=== PATIENT | male | born 1945 | race Caucasian/White ===

== ENCOUNTER 2018-02-07 08:15 | Inpatient (IN) ==
[2018-02-07] MEDS ORDERED: Naloxone 0.4 MG/ML INJ IVP PRN (10:27)
[2018-02-07] MEDS ORDERED: Ondansetron 4 MG/2 ML VIAL IVP PRN (10:27)
--- NOTE | 2018-02-07 10:45 | Internal Med History&Physical ---
Date of Encounter: 02/07/18 Time of Encounter: 10:30 Internal Medicine - H&P: HPI Chief complaint: abdominal pain Admitted From: Hospital to Hospital Transfer Plans for Post Hospital Care: Home History of present illness: Mr. Thorne is a 72 year old male with history of HTN, HLD who presented to his local ED early this morning because of severe abdominal pain, nausea and vomiting which began yesterday evening around 2200. He states that the pain is severe, radiates to his back, and is associated with vomiting. He had some diarrhea yesterday. He denies red or black stool or vomit. At the outside ED he initially appeared extremely ill and had a CTA to eval for aortic dissection/AAA rupture, and it showed normal aorta with evidence of SBO with transition point in the right lower quadrant. He was given IV dilaudid and an NG was placed with improvement of his symptoms and he requested to transfer to [facility] for further care. He states that his is normally quite healthy, follows with his PCP yearly, and has never had SBO in the past. He did have an abdominal surgery for bleeding ulcer approximately 20 years ago. Past Med Surg Social Fam HX - Past Medical History Medical history: hyperlipidemia, hypertension - Past Surgical History Surgical History: other Additional surgical history: Surgery for bleeding ulcers ~ 20 years ago - Social History Smoking Status: Former smoker Smokeless Tobacco Status: No Alcohol use: none Drug use: none - Family History Father Hx Family Cardiac Disorders: Yes (Father with MT in his 50s) Internal Medicine - H&P: Meds Losartan [Cozaar] 25 mg PO DAILY 02/07/18 [History] Simvastatin [Zocor] 20 mg PO HS 02/07/18 [History] Allergy/AdvReac Type Severity Reaction Status Date / Time No Known Allergies Allergy Verified 02/07/18 10:34 All Systems PM: A 10-system review of systems was performed and is negative for pertinent findings except as documented above in the HPI. - Constitutional Constitutional: no fever(s), no weakness, no weight loss - EENT Eyes: no blurry vision Nose, mouth and throat: dry mouth - Cardiovascular Cardiovascular ROS IM: no chest pain - Respiratory Respiratory: no cough - Gastrointestinal Gastrointestinal: belching, bloating, diarrhea, vomiting - Genitourinary Genitourinary ROS male: no dysuria - Musculoskeletal Musculoskeletal ROS IM: no muscle cramps - Integumentary Integumentary IM: no rash - Neurological Neurological ROS: no confusion - Psychiatric Psychiatric: no confusion, no depression - Endocrine Endocrine IM: no fatigue - Hematologic/Lymphatic Hematologic/Lymphatic: no easy bleeding - Allergic/Immunologic Allergic/Immunologic: as per HPI - Constitutional Vitals: Temp Pulse Resp BP Pulse Ox 97.8 F 68 18 149/89 96 02/07/18 10:09 02/07/18 10:09 02/07/18 10:09 02/07/18 10:09 02/07/18 10:09 General appearance: Present: A&O X 3, no acute distress Exam: Patient resting comfortably in bed with no acute distress - Head Head exam: Present: atraumatic - Eye Eye exam: Present: EOMI, sclera anicteric Pupils: Present: PERRL - ENT ENT exam: Present: mucous membranes dry - Neck Neck exam general surgery: Present: supple - Respiratory Respiratory exam: Present: CTAB - Cardiovascular Cardiovascular exam: Present: RRR. Absent: diastolic murmur, gallop, rubs, systolic murmur - GI/Abdominal GI/Abdominal exam: Present: diminished bowel sounds, guarding, soft, tenderness Additional comments: Markedly diminished bowel sounds, high pitch, pain with palpation worst in bilateral lower quadrants - Extremities Exam Extremities exam: Absent: pedal edema - Neurological Exam Neurological exam: Present: no focal deficits - Psychiatric Psychiatric exam: Present: normal affect, normal mood - Skin Skin exam: Absent: rash Internal Med - H&P Results - Labs CBC & Chem 7: 02/07/18 11:22 02/07/18 11:22 Labs: K 4.8, Ca 10 at outside hospital - Assessment and plan (1) Small bowel obstruction Current Visit: Yes Status: Acute Assessment and plan: Patient hemodynamically stable. Denies history of previous SBO. Does have history of abdominal surgery for ulcers ~20 years ago. - General surgery consulted, appreciate assistance - NG in place - will attach to low intermittent suction and monitor output - Check and replace electrolytes as needed - NS at 125 ccs/hr - Will give IV pain meds, but limit as able. Code(s): K56.609 - Unspecified intestinal obstruction, unspecified as to partial versus complete obstruction SNOMED Code(s): 699970094 (2) HTN (hypertension) Current Visit: Yes Status: Acute Assessment and plan: BP stable on arrival to [facility]. Patient unsure of home meds. - Will attempt to obtain medication list from . Currently no need for antihypertensives, if BP increases significantly can consider IV antihypertensive meds PRN (patient NPO). Qualifiers: Hypertension type: essential hypertension Qualified Code(s): I10 - Essential (primary) hypertension (3) HLD (hyperlipidemia) Current Visit: Yes Status: Acute Assessment and plan: Hold meds, patient NPO Qualifiers: Hyperlipidemia type: unspecified Qualified Code(s): E78.5 - Hyperlipidemia, unspecified (4) Lactic acid acidosis Current Visit: Yes Status: Acute Assessment and plan: Lactate 2.6 at outside ED, secondary to dehydration - Recheck lactate - Time Spent With Patient Total time spent is greater than 50% in coordination of care (as documented) at patient's floor/unit and/or counseling patient: 25 - 35 minutes
[2018-02-07] MEDS: 0.9 % Sodium Chloride 1,000 ML IVC SCH ×2 (11:23→19:46)
[2018-02-07] MEDS: *HR* HYDROmorphone (PF) 1 MG/ML SYRINGE IVP PRN ×3 (11:23→21:31)
[2018-02-07 11:36] LABS: Basophils % 0.2 %; Hematocrit 42.3 % (37.5-50.1); Hemoglobin 14.5 g/dL (12.9-16.9); Immature Granulocytes % 0.3 % (0-4); Lymphocytes # 0.6 K/mcL (0.6-4.6); Lymphocytes % 6.1 %; Mean Corpuscular HGB Conc 34.3 g/dL (31.6-35.5); Mean Corpuscular Hemoglobin 31.3 pg (28.0-33.3); Mean Corpuscular Volume 91.2 fL (83.0-100.0); Mean Platelet Volume 9.4 fL (9.4-12.4); Monocytes # 0.6 K/mcL (0.0-1.3); Monocytes % 6.7 %; Platelet Count 211 K/mcL (140-400); Red Blood Count 4.64 M/mcL (4.19-5.50); Red Cell Distribution Width 12.2 % (11.5-14.5); Segmented Neutrophils % 86.7 %
[2018-02-07 11:54] LABS: BUN/Creatinine Ratio 16 (6-26); Blood Urea Nitrogen 16 mg/dL (8-23); Calcium 8.7 mg/dL (8.6-10.3); Carbon Dioxide 28 mEq/L (23-29); Chloride 107 mEq/L (98-107); Glucose 132 mg/dL (70-105); Osmolality,Calculated 293 (280-300); Potassium 4.9 mEq/L (3.5-5.1); Sodium 140 mEq/L (136-145); eGFR For Non-African Americans > 60 (> 60)
--- NOTE | 2018-02-07 15:52 | General Surgery Consult Note ---
Date of Encounter: 02/07/18 Time of Encounter: 12:30 Assessment and Plan (1) Small bowel obstruction Current Visit: Yes Status: Acute CT evidence for small bowel obstruction Patient has NGT with dark brown liquid Patient NPO IVF at 125 ml/hr On hydromorphone for pain Zofran for nausea Protonix for GI prophylaxis Will trend NGT output, if consistent or increases > will order CT abdomen/pelvis with IV and oral contrast tomorrow (2) HTN (hypertension) Current Visit: Yes Status: Acute Management per primary team Qualifiers: Hypertension type: essential hypertension Qualified Code(s): I10 - Essential (primary) hypertension (3) HLD (hyperlipidemia) Current Visit: Yes Status: Acute Management per primary team Qualifiers: Hyperlipidemia type: unspecified Qualified Code(s): E78.5 - Hyperlipidemia, unspecified History of Present Illness Consult date: 02/07/18 Reason for consult: other (small bowel obstruction) Requesting physician: Kelly Mendosa History of present illness: 72 year old male with PMHx of HTN and HLD who presented to [place] after being seen at his local ED this morning for abdominal pain, nausea and vomiting. Surgery consulted for small bowel obstruction. Abdomen/pelvis CTA was performed for evaluation of aortic dissection vs AAA, which showed normal aorta but was concerning for small bowel obstruction. Patient was given dilaudid and an NGT was placed. Patient seen and examined this afternoon. He states his pain is improved from earlier today. He denies CP, SOB, fever/chills. Patient states he had an operation for bleeding ulcers 20 years ago. He denies other abdominal surgeries. Patient denies history of bowel obstructions in the past. Past Med Surg Social Fam HX - Past Medical History Medical history: hyperlipidemia, hypertension - Past Surgical History Surgical History: other Additional surgical history: Surgery for bleeding ulcers ~ 20 years ago - Social History Smoking Status: Former smoker Smokeless Tobacco Status: No Alcohol use: none Drug use: none - Family History Father Hx Family Cardiac Disorders: Yes (Father with NC in his 50s) Medications and Allergies Losartan [Cozaar] 25 mg PO DAILY 02/07/18 [History] Simvastatin [Zocor] 20 mg PO HS 02/07/18 [History] Allergy/AdvReac Type Severity Reaction Status Date / Time No Known Allergies Allergy Verified 02/07/18 10:34 Review of Systems All systems PM: The remainder of the systems were reviewed and are negative General Surgery Exam Initial Vital Signs Temp Pulse Resp BP Pulse Ox 97.8 F 68 18 149/89 96 02/07/18 10:09 02/07/18 10:09 02/07/18 10:09 02/07/18 10:09 02/07/18 10:09 - General physical appearance well developed, well nourished, no distress - Respiratory normal expansion, normal respiratory effort - Cardiovascular Cardiovascular exam: Present: RRR - Abdomen Abdomen general surgery: Present: bowel sounds present, soft, tender (mildly), surgical scars Abdominal Tenderness: Present: diffusely - Integumentary Integumentary general surgery: Present: warm and dry, no abnormal pigmentation - Psychiatric Psychiatric general surgery: Present: A&Ox3, appropriate Exam Initial Vital Signs Temp Pulse Resp BP Pulse Ox 97.8 F 68 18 149/89 96 02/07/18 10:09 02/07/18 10:09 02/07/18 10:09 02/07/18 10:09 02/07/18 10:09 Results - Labs 02/07/18 11:22 02/07/18 11:22 Abnormal lab results Glucose 132 mg/dL (70-105) H 02/07/18 11:22 Diabetes panel 02/07/18 Range/Units 11:22 Sodium 140 (136-145) mEq/L Potassium 4.9 (3.5-5.1) mEq/L Chloride 107 (98-107) mEq/L Carbon Dioxide 28 (23-29) mEq/L BUN 16 (8-23) mg/dL Creatinine 0.98 (0.70-1.30) mg/dL Glucose 132 H (70-105) mg/dL Calcium 8.7 (8.6-10.3) mg/dL Calcium panel 02/07/18 Range/Units 11:22 Calcium 8.7 (8.6-10.3) mg/dL Pituitary panel 02/07/18 Range/Units 11:22 Sodium 140 (136-145) mEq/L Potassium 4.9 (3.5-5.1) mEq/L Chloride 107 (98-107) mEq/L Carbon Dioxide 28 (23-29) mEq/L BUN 16 (8-23) mg/dL Creatinine 0.98 (0.70-1.30) mg/dL Glucose 132 H (70-105) mg/dL Calcium 8.7 (8.6-10.3) mg/dL Adrenal panel 02/07/18 Range/Units 11:22 Sodium 140 (136-145) mEq/L Potassium 4.9 (3.5-5.1) mEq/L Chloride 107 (98-107) mEq/L Carbon Dioxide 28 (23-29) mEq/L BUN 16 (8-23) mg/dL Creatinine 0.98 (0.70-1.30) mg/dL Glucose 132 H (70-105) mg/dL Calcium 8.7 (8.6-10.3) mg/dL All other labs normal. Consult Discharge Plan - Plan Referrals: Kwame Bo MD [Primary Care Provider] -
[2018-02-07] MEDS: *HR* Heparin 5,000 UNIT/ML VIAL SQ SCH (18:17)
[2018-02-07] MEDS: Pantoprazole 40 MG VIAL IVP SCH (18:18)
[2018-02-08 05:23] LABS: Basophils % 0.4 %; Eosinophils % 0.6 %; Hematocrit 38.6 % (37.5-50.1); Immature Granulocytes % 0.3 % (0-4); Lymphocytes # 1.2 K/mcL (0.6-4.6); Lymphocytes % 17.5 %; Mean Corpuscular HGB Conc 33.7 g/dL (31.6-35.5); Mean Corpuscular Hemoglobin 30.9 pg (28.0-33.3); Mean Corpuscular Volume 91.7 fL (83.0-100.0); Mean Platelet Volume 9.8 fL (9.4-12.4); Monocytes # 0.8 K/mcL (0.0-1.3); Monocytes % 11.8 %; Neutrophils # 4.9 K/mcL (1.6-8.9); Platelet Count 197 K/mcL (140-400); Red Blood Count 4.21 M/mcL (4.19-5.50); Red Cell Distribution Width 12.4 % (11.5-14.5); Segmented Neutrophils % 69.4 %
[2018-02-08] MEDS: *HR* Heparin 5,000 UNIT/ML VIAL SQ SCH ×2 (05:28→17:09)
[2018-02-08] MEDS: Pantoprazole 40 MG VIAL IVP SCH ×2 (05:30→17:09)
[2018-02-08 05:42] LABS: Alanine Aminotransferase 7 Units/L (7-52); Albumin 3.2 g/dL (3.5-5.7); Albumin/Globulin Ratio 1.5 (1.1-2.2); Alkaline Phosphatase 70 Units/L (34-104); Aspartate Amino Transferase 10 Units/L (13-39); BUN/Creatinine Ratio 13 (6-26); Bilirubin,Total 1.2 mg/dL (0.3-1.0); Blood Urea Nitrogen 13 mg/dL (8-23); Calcium 8.2 mg/dL (8.6-10.3); Carbon Dioxide 27 mEq/L (23-29); Chloride 108 mEq/L (98-107); Globulin 2.1 g/dL (2.4-3.5); Glucose 115 mg/dL (70-105); Osmolality,Calculated 291 (280-300); Sodium 140 mEq/L (136-145); Total Protein 5.3 g/dL (6.4-8.9); eGFR For Non-African Americans > 60 (> 60)
--- NOTE | 2018-02-08 13:00 | General Surgery Progress Note ---
Date of Encounter: 02/08/18 Time of Encounter: 09:15 - Assessment and Plan (1) Small bowel obstruction Current Visit: Yes Status: Acute Patient with decreased NGT output (100 > 75 > 40 ml today) Patient denies pain today Pulled NGT Start clear liquid diet On zofran for nausea Protonix for GI prophylaxis (2) HTN (hypertension) Current Visit: Yes Status: Acute Management per primary team BP 137/76 Qualifiers: Hypertension type: essential hypertension Qualified Code(s): I10 - Essential (primary) hypertension (3) HLD (hyperlipidemia) Current Visit: Yes Status: Acute Management per primary team Qualifiers: Hyperlipidemia type: unspecified Qualified Code(s): E78.5 - Hyperlipidemia, unspecified Subjective Patient reports: no new complaints, feels better, pain is less, flatus, no bowel movement Narrative: Patient doing well this morning. He denies abdominal pain, nausea, vomiting, CP, SOB, fevers/chills. He is passing flatus, but no BMs. Objective Vital Signs - Last 8 Hours Temp Pulse Resp BP Pulse Ox 02/08/18 12:24 98.8 F 64 18 137/76 95 02/08/18 08:11 98.0 F 67 17 134/80 93 Intake and Output 02/07/18 02/08/18 02/08/18 23:59 07:59 15:59 Intake Total 1000 / 1000 1000 / 1000 0 / 0 Output Total 200 / 200 525 / 525 275 / 275 Balance 800 / 800 475 / 475 -275 / -275 Intake: IV Fluids 1000 / 1000 1000 / 1000 0.9 % Sodium Chloride 1,000 ML 1000 / 1000 1000 / 1000 @ 125 mls/hr IVC .Q8H [facility] Rx#: [id number] Oral 0 / 0 Output: Urine 100 / 100 450 / 450 275 / 275 Gastric Drainage 100 / 100 75 / 75 Right Nare 50 / 50 - General physical appearance well developed, well nourished - ENT Other (NGT intact with 40 ml dark brown liquid in container) - Respiratory normal expansion, normal respiratory effort - Cardiovascular Cardiovascular exam: Present: RRR - Abdomen Abdomen: Present: bowel sounds present, soft, non tender, surgical scars - Integumentary no rash - Psychiatric oriented to time, oriented to person, oriented to place - Labs 02/08/18 04:50 02/08/18 04:50 Diabetes panel 02/08/18 Range/Units 04:50 Sodium 140 (136-145) mEq/L Potassium 4.0 (3.5-5.1) mEq/L Chloride 108 H (98-107) mEq/L Carbon Dioxide 27 (23-29) mEq/L BUN 13 (8-23) mg/dL Creatinine 1.01 (0.70-1.30) mg/dL Glucose 115 H (70-105) mg/dL Calcium 8.2 L (8.6-10.3) mg/dL AST 10 L (13-39) Units/L ALT 7 (7-52) Units/L Alkaline Phosphatase 70 (34-104) Units/L Albumin 3.2 L (3.5-5.7) g/dL Calcium panel 02/08/18 Range/Units 04:50 Calcium 8.2 L (8.6-10.3) mg/dL Albumin 3.2 L (3.5-5.7) g/dL Pituitary panel 02/08/18 Range/Units 04:50 Sodium 140 (136-145) mEq/L Potassium 4.0 (3.5-5.1) mEq/L Chloride 108 H (98-107) mEq/L Carbon Dioxide 27 (23-29) mEq/L BUN 13 (8-23) mg/dL Creatinine 1.01 (0.70-1.30) mg/dL Glucose 115 H (70-105) mg/dL Calcium 8.2 L (8.6-10.3) mg/dL Adrenal panel 02/08/18 Range/Units 04:50 Sodium 140 (136-145) mEq/L Potassium 4.0 (3.5-5.1) mEq/L Chloride 108 H (98-107) mEq/L Carbon Dioxide 27 (23-29) mEq/L BUN 13 (8-23) mg/dL Creatinine 1.01 (0.70-1.30) mg/dL Glucose 115 H (70-105) mg/dL Calcium 8.2 L (8.6-10.3) mg/dL Total Bilirubin 1.2 H (0.3-1.0) mg/dL AST 10 L (13-39) Units/L ALT 7 (7-52) Units/L Alkaline Phosphatase 70 (34-104) Units/L Albumin 3.2 L (3.5-5.7) g/dL Consult Discharge Plan - Plan Referrals: Kwame Bo MD [Primary Care Provider] -
--- NOTE | 2018-02-08 20:48 | Internal Med Progress Note ---
Hospitalist Progress Note - Encounter Date of Encounter: 02/08/18 Time of Encounter: 19:00 - Subjective Interval History: SUBJECTIVE: The patient feels good. His NG tube was removed around 1 PM; I saw him around 2 PM. Denies abdominal pain, nausea and vomiting. His abdomen is mildly rounded; he tells me that it is chronic. He has not had any bowel movements today. Denies chest pain and difficulty breathing. Denies coughing and wheezing. He seems to have normal urination. OBJECTIVE: Skin: Free of rash and discoloration. ENMT: Oral/pharyngeal mucosa is normal in appearance. Eyes: Sclera is white. There is no discharge from eyes. Respiratory: Normal breath sounds; no crackles or wheezes. CV: Heart is regular; no gallop or murmur. GI: Abdomen is mildly rounded. It is soft and not tender. There is no palpable mass or visceromegaly. Neuro: There is no focal deficits. ADDITIONAL DATA: CBC is normal. BMP/hepatic panel is normal, too. ASSESSMENT AND PLAN: Small bowel obstruction. Seems to be resolved. The patient is advanced [facility]. See notes from general surgery. The patient had a major surgery for treatment of bleeding ulcers about 25 years ago. Hypertension. Under control. I will restart his Cozaar. Hyperlipidemia. I will restart his Zocor. DISPOSITION: The patient has a good chance to be discharged tomorrow. - Exam Vitals: Temp Pulse Resp BP Pulse Ox 98.6 F 57 17 130/77 94 02/08/18 19:52 02/08/18 19:52 02/08/18 19:52 02/08/18 19:52 02/08/18 20:32 Exam: xx - Assessment and Plan (1) Small bowel obstruction Current Visit: Yes Status: Acute Code(s): K56.609 - Unspecified intestinal obstruction, unspecified as to partial versus complete obstruction SNOMED Code(s): 409008039 (2) HTN (hypertension) Current Visit: Yes Status: Acute (3) HLD (hyperlipidemia) Current Visit: Yes Status: Acute - Time Spent with Patient Total time spent is greater than 50% in coordination of care (as documented) at patient's floor/unit and/or counseling patient: 25 - 35 minutes Plan of Care Discussed with: patient Internal Medicine: Result - Labs CBC & Chem 7: 02/08/18 04:50 02/08/18 04:50 Labs: Short CBC 02/08/18 Range/Units 04:50 WBC 7.0 (4.3-11.1) K/mcL Hgb 13.0 D (12.9-16.9) g/dL Hct 38.6 (37.5-50.1) % Plt Count 197 (140-400) K/mcL Neutrophils # 4.9 (1.6-8.9) K/mcL BMP 02/08/18 04:50 Sodium 140 Potassium 4.0 Chloride 108 H Carbon Dioxide 27 BUN 13 Creatinine 1.01 Glucose 115 H Calcium 8.2 L Liver Function 02/08/18 Range/Units 04:50 Total Bilirubin 1.2 H (0.3-1.0) mg/dL AST 10 L (13-39) Units/L ALT 7 (7-52) Units/L Alkaline Phosphatase 70 (34-104) Units/L Albumin 3.2 L (3.5-5.7) g/dL Consult Discharge Plan - Plan Referrals: Kwame Bo MD [Primary Care Provider] - (2) HTN (hypertension) Qualifiers: Hypertension type: essential hypertension Qualified Code(s): I10 - Essential (primary) hypertension (3) HLD (hyperlipidemia) Qualifiers: Hyperlipidemia type: unspecified Qualified Code(s): E78.5 - Hyperlipidemia, unspecified
[2018-02-09] MEDS ORDERED: *HR* Metoprolol 5 MG/5 ML VIAL IVP ONE (04:32)
[2018-02-09] MEDS: *HR* Heparin 5,000 UNIT/ML VIAL SQ SCH (05:09)
[2018-02-09] MEDS: Pantoprazole 40 MG VIAL IVP SCH (05:10)
[2018-02-09] MEDS ORDERED: OXYCODONE Oral CONC 10 MG/0.5 ML ORAL.SYG SL PRN (09:24)
--- NOTE | 2018-02-09 10:01 | Discharge Summary ---
Date of Encounter: 02/09/18 Time of Encounter: 09:58 - Discharge Diagnosis (1) Small bowel obstruction Priority: Primary Status: Acute Code(s): K56.609 - Unspecified intestinal obstruction, unspecified as to partial versus complete obstruction SNOMED Code(s): 249076733 (2) HTN (hypertension) Priority: Secondary Status: Chronic Qualifiers: Hypertension type: essential hypertension Qualified Code(s): I10 - Essential (primary) hypertension (3) HLD (hyperlipidemia) Priority: Secondary Status: Chronic Qualifiers: Hyperlipidemia type: unspecified Qualified Code(s): E78.5 - Hyperlipidemia, unspecified Hospital course: HOSPITAL COURSE: The patient is a 71-year-old male. He was admitted with progressing abdominal pain/distention and nausea/vomiting. The symptoms started in the evening of the day preceding the admission. He went to an outside emergency department. Then, he was transferred to our hospital. We diagnosed him with small bowel obstruction. He was started on nothing by mouth diet and IV fluids. General surgery was consulted. NG tube was inserted. The patient had a major abdominal surgery about 25 years ago; for treatment of gastric ulcers. On the very next day after the admission were able to discontinue NG tube. The patient was put on clear liquids. After several hours we advanced his diet to regular. The patient had no problems to tolerate that diet. CONDITION AT DISCHARGE: The patient feels good. The symptoms of abdominal pain/distention and nausea/vomiting subsided. He tolerates regular diet. He has no problems with ambulation. Denies chest pain. Denies difficulty breathing, coughing and wheezing. He has normal urination. Skin: Free of rash and discoloration. Respiratory: Normal breath sounds with no crackles and wheezes bilaterally. CV: Heart is regular with no gallop or murmur. GI: Abdomen is flat and soft with no palpable mass or visceromegaly. Neuro exam: There is no focal deficits. Normal speech, swallowing and gait. SEE DISCHARGE ORDERS/MEDICATIONS.. We advised him to come to the emergency room, if he develops similar symptoms again. Discharge discussed with: patient - Time Spent with Patient Total time spent providing and/or coordinating discharge services: Greater than 30 minutes (35 minutes..) - Discharge Medications Home Medications: Losartan [Cozaar] 25 mg PO DAILY 02/07/18 [History] Simvastatin [Zocor] 20 mg PO HS 11/10/18 [History] Allergies/Adverse Reactions: Allergy/AdvReac Type Severity Reaction Status Date / Time No Known Allergies Allergy Verified 02/07/18 10:34 Date of admission: 02/07/18 10:27 Primary care physician: Kwame Bo MD Consults: 02/07/18 10:30 Consult to Physician [CONS] Routine Consulting Provider: Surgery [facility] Reason for Consult: SBO Call Completed: Yes Discharging clinician: Jose David Hill Anticipated date of discharge: 02/09/18 - Constitutional Vitals: Temp Pulse Resp BP Pulse Ox 98.2 F 57 19 132/77 97 02/09/18 07:00 02/09/18 07:00 02/09/18 07:00 02/09/18 07:00 02/09/18 07:54 General appearance: Present: A&O X 3, no acute distress, answers questions appropriately Exam: xx - Patient Status Disposition: Home, Self-Care Condition: Good Functional capacity at discharge: independent ambulation Overall status at discharge: patient is back to baseline - Discharge Instructions Instructions: Chronic Hypertension (DC), Bowel Obstruction (GEN) Follow Up With: Kwame Bo MD [Primary Care Provider] - 02/13/18 10:00 am (Please follow up as schedule...) - Diet and Activity Activity: resume usual activities as tolerated Diet: low fat, low cholesterol - VTE Deep Vein Thrombosis/Pulmonary Embolism Present on Admission: No
--- NOTE | 2018-02-09 10:55 | Event Note ---
Date of Encounter: 02/09/18 Time of Encounter: 09:30 Patient is doing well this morning. He is not complaining of abdominal pain. He tolerated solid food for breakfast with no nausea or vomiting. Patient had BM. He denies CP, SOB, fevers/chills. Abdomen is non-tender to palpation. From a surgical standpoint, patient is ok for discharge. Surgery will sign off now, thank you for the consult.
[2018-02-09 11:28] VITALS: BP 132/77
[2018-02-10] MEDS ORDERED: Pantoprazole 40 MG VIAL IVP SCH (09:00)
== END 2018-02-09 13:40 | disposition home or self-care (01) | DRG 389 ==
LOC: 2ANU → SUATTDRO 10:27
PROVIDERS: ADMIT Internal Medicine; ATTEND Internal Medicine